=== PATIENT | male | born 1995 | race African-American/Black ===

== ENCOUNTER → 2020-01-15 | Outpatient (CLI) | payer OTHER ==
--- NOTE | 2020-01-15 13:51 | Diagnostic Imaging Report ---
PROCEDURE: MRI left joint lower extremity without contrast. TECHNIQUE: Multiplanar, multisequence non contrast-enhanced MRI of the left lower extremity was accomplished. INDICATION: Left hip pain. COMPARISON: None available. FINDINGS: Left hip: No hip effusion. Articular cartilage is well preserved throughout the left hip. There is no chondrolabral separation or paralabral cyst. Assessment for nondisplaced acetabular labral tear is suboptimal without intra-articular contrast. Normal femoral head-neck offset. No acetabular retroversion. Muscles and tendons: The bilateral distal iliopsoas tendons are intact. Proximal hamstring complexes are normal. No narrowing of the ischiofemoral spaces. The adductor musculature is normal. The gluteus medius and minimus insertions on both sides are intact. No peritrochanteric fluid collection that would indicate bursitis. Rectus abdominis insertion is normal on the pubic symphysis. Bones: No osteonecrosis of the femoral heads. No stress fracture within the proximal femurs or pelvis. SI joints are normal without features of sacroiliitis. Soft tissues: No free pelvic fluid. No pelvic or inguinal lymphadenopathy. Partially imaged fluid collection along the superficial fascia of the left gluteal musculature extends over a craniocaudal length of approximately 16 cm and has a thickness of approximately 1.8 cm. There is some mild intramuscular edema signal along the myofascial junction of the lateral gluteus violeta. IMPRESSION: 1. Degloving injury (Soni-Benito lesion) along the subcutaneous fat and left gluteal superficial fascia. There is associated mild intramuscular edema in the peripheral margin of the left gluteus violeta but no features of intramuscular hematoma. 2. No additional acute injury. Dictated by: Dictated on workstation # [id number]
== END ==
LOC: RAD 11:59
PROVIDERS: ATTEND Orthopaedic Surgery
DX: S79.912A Unspecified injury of left hip, initial encounter (principal); X58.XXXA Exposure to other specified factors, initial encounter; M25.552 Pain in left hip
CPT/HCPCS: 73721